=== PATIENT | female | born 1935 | race Caucasian/White ===

== ENCOUNTER 2019-01-27 21:06 | Emergency (ER) ==
[~2019-01-27] VITALS: Ht 157.5 cm; Wt 73.5 kg
--- NOTE | 2019-01-27 21:21 | NUR ---
[id number] FROM HOME, S/P GLF, TRIPPED ON SIDE WALKER, NOTED LAC ON RT EYE AND HEAD. VS STABLE, PLACED ON ER BED 10 AWAITING TO BE EVAL BY ER MD.
[2019-01-27 21:56] LABS: BASOPHILS # (AUTO) 0.1 /CMM (0.0-0.2); BASOPHILS % (AUTO) 0.9 % (0.0-2.0); EOSINOPHILS % (AUTO) 1.6 % (0.0-6.0); HEMATOCRIT 45 % (33-45); LYMPHOCYTES # (AUTO) 1.9 /CMM (0.8-4.8); LYMPHOCYTES % (AUTO) 24.8 % (20.0-44.0); MEAN CORPUSCULAR HGB CONC 33 g/dl (31.0-36.0); MEAN CORPUSCULAR VOLUME 99 fL (82-100); MONOCYTES # (AUTO) 0.7 /CMM (0.1-1.30); MONOCYTES % (AUTO) 8.5 % (2.0-12.0); NEUTROPHILS % (AUTO) 64.2 % (43.0-81.0); PLATELET COUNT (AUTO) 178 /CMM (150-450); RED BLOOD CELL COUNT(AUTO) 4.57 MIL/uL (4.0-5.2); WHITE BLOOD COUNT (AUTO) 7.8 K/uL (4.3-11.0)
--- NOTE | 2019-01-27 22:07 | NUR ---
SEEN BY DR SCOTT AT BED SIDE EVAL DONE, HEAD TO TOE, SENT TO CT HEAD, NECK AND RT HAND. COLD PACKS POLACED ON RT FORE HEAD, PT TO BE SUTURED, KIT RAEDY AT BED SIDE.
[2019-01-27] MEDS ORDERED: CEPHALEXIN MONOHYDRATE 500 MG CAPSULE PO ONE (22:30)
[2019-01-27] MEDS ORDERED: SODIUM BICARBONATE 5 ML VIAL TP ONE (22:30)
[2019-01-27] MEDS ORDERED: LIDOCAINE 1%-EPI 1:100,000 20 ML VIAL TP ONE (22:30)
[2019-01-27 23:00] LABS: ALANINE AMINOTRANSFERASE 24 U/L (12-78); ALBUMIN 3.6 g/dL (3.4-5.0); ALKALINE PHOSPHATASE 80 U/L (46-116); ASPARTATE AMINOTRANSFERASE 23 U/L (15-37); BILIRUBIN,DIRECT 0.1 mg/dL (0.0-0.2); BILIRUBIN,TOTAL 0.4 mg/dL (0.2-1.0); CALCIUM, SERUM 9.1 mg/dL (8.5-10.1); CARBON DIOXIDE 26 mmol/L (21-32); CHLORIDE 105 mmol/L (98-107); CREATININE 0.8 mg/dL (0.6-1.3); GLUCOSE 100 mg/dL (74-106); POTASSIUM 3.8 mmol/L (3.5-5.1); SODIUM SERUM 142 mmol/L (136-145); TOTAL PROTEIN, SERUM 7.9 g/dL (6.4-8.2); UREA NITROGEN, BLOOD 13 mg/dL (7-18)
--- NOTE | 2019-01-27 23:09 | NUR ---
lt foe head sutered by dr parada at bedside bandage placed as well as ice cold pack placed with bianka wrap to hold inplace.
--- NOTE | 2019-01-27 23:44 | NUR ---
Patient discharged to home in stable condition. Written rx and verbal after care instructions given. Patient verbalizes understanding of instruction. Wound care done clean and dry.
[2019-01-27 23:57] VITALS: BP 133/80
== END 2019-01-27 23:59 | disposition home or self-care (01) ==
LOC: ER 21:08
DX: S01.81XA Laceration without foreign body of other part of head, initial encounter (principal); S40.021A Contusion of right upper arm, initial encounter; F03.90 Unspecified dementia, unspecified severity, without behavioral disturbance, psychotic disturbance, mood disturbance, and anxiety; R55 Syncope and collapse; Z88.0 Allergy status to penicillin; W01.0XXA Fall on same level from slipping, tripping and stumbling without subsequent striking against object, initial encounter; Y93.89 Activity, other specified; Y92.480 Sidewalk as the place of occurrence of the external cause; Y99.8 Other external cause status
CPT/HCPCS: 12011; 36415; 70450; 70486; 71045; 72125; 73060; 80048; 80076; 82962; 84484; 85025; 85730; 93005; 99284; A6402; A6403